=== PATIENT | female | born 1960 | race Caucasian/White ===

== ENCOUNTER 2017-09-25 11:22 | Emergency (ER) | payer OTHER ==
[~2017-09-25] VITALS: Ht 167.6 cm; Wt 73.0 kg
[2017-09-25 11:25] VITALS: BP 136/75; PULSE 88; RESP 24; TEMP 97.6; O2SAT 100
[2017-09-25] MEDS ORDERED: VITA1000 PO (11:41)
[2017-09-25] MEDS ORDERED: FLUO-1 PO (11:41)
[2017-09-25] MEDS ORDERED: CLON1TAB PO (11:41)
[2017-09-25] MEDS ORDERED: IBUPROFEN 800 MG TAB PO ONE (11:45)
[2017-09-25] MEDS ORDERED: ACETAMINOPHEN/HYDROcodone 325 MG/5 MG TAB PO ONE (11:45)
--- NOTE | 2017-09-25 11:50 | PD ---
HPI Chief Complaint: Fall Time Seen by Provider: 11:30 Travel History International Travel<30 days: No Contact w/Intl Traveler<30days: No Traveled to known affect area: No History of Present Illness HPI 48-year-old female that presents to the ED for evaluation of trip and fall today. Per patient she had tripped and fell over her dog. Patient states having pain in her right ribs, elbows bilaterally as well as her right knee. She states that the pain is sharp and is annotated more severe on the ribs. No prior injuries to her ribs before. No blood thinners. No head injury loss of consciousness. She has abrasions road rash to the elbows bilaterally as well as the knee. She had surgery on her knee for partial knee replacement. Injury occurred a couple of hours ago. Per patient she has had her flu shot recently. Denies any neck or back pain. Has not taken anything for this. No numbness, drooling, weakness. History of mild osteopenia PFSH Past Medical History Hx Anticoagulant Therapy: No ?: Not Social History Tobacco Use: No Allergies-Medications (Allergen,Severity, Reaction): Coded Allergies: Penicillins (Verified Allergy, Unknown, 09/25/17) Reported Meds & Prescriptions Reported Meds & Active Scripts Active Zofran Odt (Ondansetron Odt) 4 Mg Tab 4 Mg SL Q6HR PRN Hydrocodone-Acetamin 5-325 mg (Hydrocodone/Acetaminophen) 5 Mg-325 Mg Tablet 1 Tab PO Q6HR PRN Diclofenac Sodium DR (Diclofenac Sodium) 75 Mg Tabdr 75 Mg PO BID PRN Reported Vitamin D-1000 (Cholecalciferol) 1,000 Unit Tab 2,000 Units PO DAILY Prozac (Fluoxetine HCl) 10 Mg Cap 10 Mg PO DAILY Clonazepam 1 Mg Tab 1 Mg PO HS Review of Systems Except as stated in HPI: all other systems reviewed are Neg Physical Exam Narrative GENERAL: SKIN: Warm and dry. HEAD: Atraumatic. Normocephalic. EYES: Pupils equal and round 4 mm reactive to light and accommodation. No scleral icterus. No injection or drainage. ENT: No nasal bleeding or discharge. Mucous membranes pink and moist. Tongue is midline. No uvula deviation. NECK: Trachea midline. No JVD. CARDIOVASCULAR: Regular rate and rhythm. RESPIRATORY: No accessory muscle use. Clear to auscultation. Breath sounds equal bilaterally. GASTROINTESTINAL: Abdomen soft, non-tender, nondistended. Hepatic and splenic margins not palpable. MUSCULOSKELETAL: Extremities without clubbing, cyanosis, or edema. No obvious deformities. Patient has swelling and red rash noted on the elbows bilaterally as well as in the right knee. Patient has pain with range of motion of the knee especially with flexion. Able to move it however. 2+ pulses bilaterally. Patient does have point tenderness to palpation on the right rib cage. No obvious lumbar, thoracic and cervical spine tenderness to palpation. Full range of motion of the upper extremities with minimal discomfort. Sensation intact bilaterally. Able to move the fingers fully. No wrist tenderness. NEUROLOGICAL: Awake and alert. No obvious cranial nerve deficits. Motor grossly within normal limits. Five out of 5 muscle strength in the arms and legs. Normal speech. PSYCHIATRIC: Appropriate mood and affect; insight and judgment normal. Data Data Last Documented VS Vital Signs Date Time Temp Pulse Resp B/P (MAP) Pulse Ox O2 Delivery O2 Flow Rate FiO2 09/25/17 11:25 97.6 88 24 136/75 (95) 100 Orders Orders Elbow, Limited (Ap&Lat) (09/25/17 11:35) Elbow, Complete (4 Vws) (09/25/17 11:35) Knee, Complete (4vws) (09/25/17 11:35) Ribs, Uni (W/Exp Cxr-Min 3vw) (09/25/17 11:35) Acetamin-Hydrocod 325-5 Mg ([place] 5-325 (09/25/17 11:45) Ibuprofen (Motrin) (09/25/17 11:45) Wound Care (09/25/17 11:37) Ed Discharge Order (09/25/17 12:29) [facility] Medical Decision Making Medical Screen Exam Complete: Yes Emergency Medical Condition: Yes Medical Record Reviewed: Yes Interpretation(s) Last Impressions Knee X-Ray 09/25/17 1135 Signed Impressions: Service Date/Time: Monday, September 25, 2017 11:46 - CONCLUSION: Status post partial joint replacement involving the medial femoral tibial joint. Moderate osteoarthritis involving the patellofemoral joint. No acute fracture or dislocation. Addi Ya MD Elbow X-Ray 09/25/17 1135 Signed Impressions: Service Date/Time: Monday, September 25, 2017 11:46 - CONCLUSION: No acute disease. Addi Ya MD Elbow X-Ray 09/25/17 1135 Signed Impressions: Service Date/Time: Monday, September 25, 2017 11:46 - CONCLUSION: No acute disease. Addi Ya MD xray or right ribs negative for acute injury Differential Diagnosis Fracture versus sprain versus strain versus bruises versus contusions Narrative Course 56-year-old female that presents to the ED for evaluation of fall. Patient was probably examined and was found to have signs and symptoms consistent appears to be full. Imaging was ordered. Patient was given p.o. medications. Imaging showed no sign of acute disease. Patient was restricted this time this appears to be contusions. Patient given a short prescription for premedication to use as needed. Ice or warm compresses endorsed. Wound care was done by ED nurse. Told to follow with PCP. See ED worsening symptoms. Diagnosis Primary Impression: Fall Qualified Codes: W19.XXXA - Unspecified fall, initial encounter Additional Impressions: Multiple contusions Multiple abrasions Contusion of rib on right side Qualified Codes: S20.211A - Contusion of right front wall of thorax, initial encounter Patient Instructions: Narcotic given in the ED, General Instructions Departure Forms: Tests/Procedures, Work Release Enter return to work date: Sep 28, 2017 Additional Instructions: Take medications as prescribed. Follow-up with PCP. See ED for any worsening symptoms. Do not drink or drive while taking pain medication. Apply ice or heat as needed for pain Med/Other Pt SpecificInfo: Prescription(s) given, Wound Care Scripts Ondansetron Odt (Zofran Odt) 4 Mg Tab 4 MG SL Q6HR Y for Nausea/Vomiting, #20 TAB 0 Refills Prov: Jaun Leung MD 09/25/17 Hydrocodone/Acetaminophen (Hydrocodone-Acetamin 5-325 mg) 5 Mg-325 Mg Tablet 1 TAB PO Q6HR Y for PAIN SCALE 1 TO 10, #14 Prov: Jaun Leung MD 09/25/[address] (Diclofenac Sodium DR) 75 Mg Tabdr 75 MG PO BID Y for PAIN SCALE 1 TO 10, #20 TAB 0 Refills Prov: Jaun Leung MD 09/25/17 Disposition: 01 DISCHARGE HOME Condition: Stable Aidan Brookeo PA Sep 25, 2017 11:50
[2017-09-25] MEDS ORDERED: HYDR-3516 PO (12:06)
[2017-09-25] MEDS ORDERED: DICL75TA PO (12:06)
[2017-09-25] MEDS ORDERED: LIDO1ADH4 TOPICAL (12:06)
[2017-09-25] MEDS ORDERED: ZOFR4TAB3 SL (12:07)
--- NOTE | 2017-09-25 12:18 | RADRPT ---
EXAM DATE/TIME: 09/25/2017 11:46 [facility] COMPARISON: No previous studies available for comparison. INDICATIONS : Fall, left elbow pain. MEDICAL HISTORY : None. SURGICAL HISTORY : None. ENCOUNTER: Initial ACUITY: 1 day PAIN SCORE: 9/10 LOCATION: Left elbow FINDINGS: Two view examination of the left elbow demonstrates no soft tissue swelling, joint effusion, fracture or dislocation. Bony mineralization is normal. CONCLUSION: No acute disease. Addi Ya MD on September 25, 2017 at 12:16 Board Certified Radiologist. This report was verified electronically.
--- NOTE | 2017-09-25 12:19 | RADRPT ---
EXAM DATE/TIME: 09/25/2017 11:46 [facility] COMPARISON: No previous studies available for comparison. INDICATIONS : Fall, right elbow pain. MEDICAL HISTORY : None. SURGICAL HISTORY : None. ENCOUNTER: Initial ACUITY: 1 day PAIN SCORE: 9/10 LOCATION: Right elbow FINDINGS: Multiple view examination of the right elbow demonstrates no soft tissue swelling, joint effusion, or fracture. The osseous structures are in normal alignment. Bony mineralization is normal. CONCLUSION: No acute disease. Addi Ya MD on September 25, 2017 at 12:17 Board Certified Radiologist. This report was verified electronically.
--- NOTE | 2017-09-25 12:23 | RADRPT ---
EXAM DATE/TIME: 09/25/2017 11:46 [facility] COMPARISON: No previous studies available for comparison. INDICATIONS : Fall, right knee pain. MEDICAL HISTORY : None. SURGICAL HISTORY : right partial knee replacement ENCOUNTER: Initial ACUITY: 1 day PAIN SCORE: 9/10 LOCATION: Right knee FINDINGS: The patient is status post medial femoral tibial joint replacement. Moderate osteoarthritis is noted involving the patellofemoral joint. There is no acute fracture or dislocation. No knee joint effusion is noted. CONCLUSION: Status post partial joint replacement involving the medial femoral tibial joint. Moderate osteoarthri tis involving the patellofemoral joint. No acute fracture or dislocation. Addi Ya MD on September 25, 2017 at 12:20 Board Certified Radiologist. This report was verified electronically.
--- NOTE | 2017-09-25 12:24 | RADRPT ---
EXAM DATE/TIME: 09/25/2017 11:46 [facility] COMPARISON: No previous studies available for comparison. INDICATIONS : Fall, right side axial rib pain. MEDICAL HISTORY : None. SURGICAL HISTORY : breast augmentation ENCOUNTER: Initial ACUITY: 1 day PAIN SCORE: 9/10 LOCATION: Right ribs FINDINGS: Multiple views of the right ribs were performed. There is no evidence of displaced fracture. No eri tructive lesions or areas of periosteal thickening are seen. Expiratory view of the chest is negativ e for pneumothorax. The mediastinal structures are midline. Mild scoliosis of the thoracic spine is noted. CONCLUSION: No acute fracture or dislocation. Mild scoliosis of the thoracic spine. Addi Ya MD on September 25, 2017 at 12:22 Board Certified Radiologist. This report was verified electronically.
== END 2017-09-25 13:00 | disposition home or self-care (01) ==
LOC: PHEFT 11:22
DX: S20.211A Contusion of right front wall of thorax, initial encounter (principal); M17.11 Unilateral primary osteoarthritis, right knee; S50.02XA Contusion of left elbow, initial encounter; S50.01XA Contusion of right elbow, initial encounter; M85.80 Other specified disorders of bone density and structure, unspecified site; W01.0XXA Fall on same level from slipping, tripping and stumbling without subsequent striking against object, initial encounter; Z88.0 Allergy status to penicillin; Z79.899 Other long term (current) drug therapy
CPT/HCPCS: 71101; 73070; 73080; 73564; 99284